=== PATIENT | male | born 1960 | race Hispanic/Latino ===

== ENCOUNTER 2020-10-23 09:32 | Day surgery (SDC) | payer BC ==
[~2020-10-23 09:32] MED LIST: LACTATED RINGERS 1,000 ML IV SCH; MIDAZOLAM 2 MG/2 ML INJ IV NR
[2020-10-23] MEDS ORDERED: ONDANSETRON 4 MG/2 ML INJ IV PRN (10:51)
--- NOTE | 2020-10-23 10:51 | Anesthesia Consultation ---
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; denies hx difficult intubation) - Pre-Operative Health Status ASA Pre-Surgery Classification: ASA1 Proposed Anesthetic Plan: General - Pulmonary Hx Smoking: No Hx Respiratory Symptoms: No Hx Sleep Apnea: No (MICHELLE PRE SCREEN LOW RISK) - Cardiovascular System Hx Hypertension: No Hx Heart Attack/AMI: No Hx Percutaneous Transluminal Coronary Angioplasty (PTCA): No - Central Nervous System CVA: No - Endocrine Hx Renal Disease: No (renal stones) Hx Liver Disease: No Hx Insulin Dependent Diabetes: No Hx Non-Insulin Dependent Diabetes: No Hx Thyroid Disease: No - Other Systems Hx Obesity: No - Additional Comments Anesthesia Medical History Comments: No hx anesthetic complications.
--- NOTE | 2020-10-23 10:51 | Anesthesia Day of Surgery ---
Anesthesia Day of Surgery - Day of Surgery Patient Examined: Yes Patient H&P Reviewed: Yes Patient is NPO: Yes
[2020-10-23] MEDS ORDERED: ceFAZolin/Water 2 GM/20 ML 2 GM/20 ML SYRINGE IV ONE (11:18)
[2020-10-23] MEDS ORDERED: HYDROcodone/ACETAMINOPHEN 5-325 MG TAB PO PRN (11:30)
[2020-10-23] MEDS ORDERED: ceFAZolin/STERILE WATER 2 GM/20 ML SYRINGE IV NR (11:45)
[2020-10-23] MEDS ORDERED: LIDOCAINE MPF (2%) 20 MG/1 ML VIAL 5 ML ONE (11:54)
[2020-10-23] MEDS ORDERED: fentaNYL 100 MCG/2 ML INJ ONE (11:54)
[2020-10-23] MEDS ORDERED: propofoL 200 MG/20 ML VIAL IV ONE (11:54)
[2020-10-23] MEDS ORDERED: dexAMETHasone 20 MG/5 ML VIAL ONE (12:30)
[2020-10-23] MEDS ORDERED: KETOROLAC 30 MG/1 ML INJ ONE (12:30)
[2020-10-23] MEDS: HYDROmorphone 1 MG/1 ML INJ IV PRN ×2 (13:00→13:10)
--- NOTE | 2020-10-23 14:05 | Operative Report ---
DATE OF SURGERY: 10/23/2020 PREOPERATIVE DIAGNOSES: Left upper ureteral stone, left renal stone, previous post-extracorporeal shock wave lithotripsy hematoma. POSTOPERATIVE DIAGNOSES: Left upper ureteral stone, left renal stone, previous post-extracorporeal shock wave lithotripsy hematoma. PROCEDURES PERFORMED: Cystoscopy, left retrograde, left ureteroscopy with laser of multiple stones, reinsertion of double-J stent. SURGEON: Jose Francisco Hazel MD ANESTHESIA: General. FINDINGS: This is a gentleman who had a lithotripsy. He thought they moved the stone up and they did a renal lithotripsy. He had a postoperative hematoma and both stones failed to fragment. He now presents for second stage treatment. DESCRIPTION OF PROCEDURE: The patient was brought to the operating room and placed on the operating table. Following induction of anesthesia, placed in lithotomy position, prepped and draped in usual sterile fashion. The stent was withdrawn and placed up in the kidney. A second wire coiled up in the kidney. The ureteroscope came up to the stone, which was very tight, but we were able to get a good shot at it and broke it into at least 4 or 5 pieces and then followed it up into the kidney and broke it up more in the upper pole yaritza. We then looked around to the other stone and found it in the middle yaritza and broke it into about 4 or 5 pieces as well. The patient tolerated the procedure well. No attempt was made to extract the stone in multiple fragments. A 6-Romansh double J coiled in the lower pole. The patient tolerated the procedure well. No significant complications. Brought to recovery in stable condition. TID: [id number] RECEIPT: [id number] BMZ/PRE
[2020-10-23] MEDS ORDERED: PHENAZOPYRIDINE 200 MG TAB PO ONE (14:13)
[2020-10-23 15:20] VITALS: BP 142/85
--- NOTE | 2020-10-23 15:26 | Fluoroscopy Report ---
FLUOROSCOPY RETROGRADE UROGRAPHY HISTORY: Left ureteral stone COMPARISON: None. FINDINGS: 44 seconds of fluoroscopy time was provided by radiology during retrograde urography by the urologist. 8 fluoroscopic images are presented. Left ureteroscopy was performed. A left ureteral sto ne was removed per the operative notes. Left ureteral stent exchange was also performed which is in g ood position with good drainage on the final image. Please correlate with the procedural report as ne eded. IMPRESSION: Left ureteral stone removal. Left ureteral stent replacement. Fluoroscopy time: 44 seconds Fluoroscopic images: 8 Signer Name: Vimal Powers Jr, MD Signed: 10/23/2020 3:21 PM Workstation Name: [id number]
--- NOTE | 2020-10-23 17:11 | Post Anesthesia Evaluation ---
- Post Anesthesia Evaluation Patient Participated: Yes Airway Patent: Yes Stable Respiratory Function: Yes Nausea/Vomiting: No Temp > 96.8F: Yes Pain Manageable: Yes Adequeate Hydration: Yes Anesthesia Complications: No
== END 2020-10-23 15:15 | disposition home or self-care (01) ==
LOC: OR 09:32
PROVIDERS: ATTEND Urology
DX: N20.2 Calculus of kidney with calculus of ureter (principal); E78.00 Pure hypercholesterolemia, unspecified; Z79.899 Other long term (current) drug therapy; Z98.890 Other specified postprocedural states
CPT/HCPCS: 52356; 74420; C1758; C1769; C2617; J0690; J1100; J1170; J1885; J2250; J2704; J3010; J7120; Q9967